=== PATIENT | female | born 1995 | race Hispanic/Latino ===

== ENCOUNTER 2018-07-09 13:37 | Inpatient (IN) | payer OTHER ==
[2018-07-09] MEDS ORDERED: METHYLERGONOVINE 0.2MG/ML AMP IM PRN ×2 (14:01→15:30)
[2018-07-09] MEDS ORDERED: CARBOPROST TROME 250 MCG/ML IM PRN ×2 (14:01→15:30)
[2018-07-09] MEDS ORDERED: PROMETHAZINE 25 MG/ML VIAL IV PRN ×2 (14:01)
[2018-07-09] MEDS ORDERED: BUTORPHANOL 1 MG/ML INJ IV PRN (14:01)
[2018-07-09] MEDS ORDERED: Ringers Lactate 1,000 ML IV PRN (14:01)
[2018-07-09 14:16] LABS: RPR Titer ND
[2018-07-09 14:20] LABS: Absolute Lymphocytes (CBC) 1.1 K/uL (0.7-4.9); Absolute Monocytes 0.5 K/uL (0.1-1.3); Absolute Neutrophil 14.3 K/uL (1.8-8.0); Basophils % 0.2 % (0-1.3); Eosinophils % 0.1 % (0-4.4); Hematocrit 46.4 % (36.0-45.0); Lymphocytes % 6.7 % (15.3-44.8); MCV 94.8 fL (80-100); Monocytes % 3.4 % (3.3-12.3)
[2018-07-09] MEDS ORDERED: LIDOCAINE 1% MPF 30 ML VIAL ONE (14:26)
[2018-07-09 14:42] LABS: Platelet Estimate ADEQ; Urine White Blood Cell Casts OK
[2018-07-09 14:43] LABS: Blood Morphology Comment NOT SEEN (NOT SEEN)
[2018-07-09] MEDS ORDERED: Ringers Lactate 1,000 ML IV SCH (15:00)
[2018-07-09] MEDS ORDERED: OXYTOCIN/LR 20 UNIT/1,000 ML BAG IV SCH ×2 (15:00→16:00)
[2018-07-09] MEDS ORDERED: METHYLERGONOVINE 0.2 MG TAB PO PRN (15:30)
[2018-07-09] MEDS ORDERED: ONDANSETRON 4 MG (ODT) TAB PO PRN (15:30)
[2018-07-09] MEDS ORDERED: Oxycodone HCl/Acetaminophen 1 TAB TAB PO PRN (15:30)
--- NOTE | 2018-07-09 15:32 | P.BOP ---
Preoperative diagnosis: 39 wk IUP, prior c-sect, desire for Postoperative diagnosis: Same, delivery viable male infant Primary procedure: SCVD Secondary procedure: R midline episiotomy with repair Estimated blood loss: Less than 300ml Anesthesia: Local Complications: None Condition: Good
[2018-07-09 16:08] VITALS: BMI 34.3
[2018-07-09] MEDS: IBUPROFEN 200 MG TAB PO PRN (21:00)
[2018-07-09 23:07] LABS: RPR (Rapid Plasma Reagin) NON-REACT (NON-REACT)
--- NOTE | 2018-07-10 07:48 | PREOPHP ---
Date of Admission: 07/09/2018 History Of Present Illness: Ms. Hdz is a 22-year-old female 4, para 2-0-1-2 a t approximately 39-6/7th weeks' gestation by her history. She has been seen through the [facility] with complications of prior section with her second delivery. She had been planning an atte mpted vaginal after section with this . She noticed rupture of membranes farhan roximately 1-2 hours before presenting to Labor and Delivery and has been antonio prior to that t lionel. She apparently had been seen through [facility] and was told that they do not do vaginal bir th after section and she would have to be transferred to [facility]. Records have been requested, but not available at time of this dictation. Past Medical History: Prior vaginal delivery, 6+ pounds infant; prior section for failure t o progress with approximately 9 pounds . No other significant hospitalizations, accidents, ill nesses, injuries. Medications: She is on no medications other than vitamins. Allergies: SHE HAS NO KNOWN ALLERGIES. Social History: Does not smoke. Family History: Noncontributory. Review of Systems: She reports no recent cough, cold, fever, or chills. No recent nausea, vomiting. She denies any emilia ast lumps. Infant has been active. She denies any significant vaginal bleeding. She denies any bow el or bladder issues. Physical Examination: Exam on admission noted to be cervix was 7 cm. She is now approximately 9 cm less than [address] Lab work is being sent including type and screen because of the prior section. We will noti fy anesthesia, records request has been sent. Impression: Term , active rapidly advancing labor, prior section, unknown closure type. Plan: The patient counseled regarding risks and benefits of versus repeat section. We will proceed with trial of labor with . EMETERIO/ANDRY Voice ID: [id number]
--- NOTE | 2018-07-10 09:02 | DN ---
Surgeon: Deshawn Morales MD Ms. Hdz is a 22-year-old female 4, para 2-0-1-2, at approximately 39+ weeks' g estation, followed through [facility] during this with complications of a prior section. No records are available at this time. She presented, noted to be approximately 7 cm on admission, had spontaneous rupture of membranes a couple hours prior to admission. She had a first stage of la bor of approximately 10 hours, second stage of labor 22 minutes. She delivered by spontaneous contro lled vaginal delivery a 0-xvawy-20-ounce male infant over a right midline episiotomy with local infil tration of anesthesia. After some short delay, cord was clamped, cut, and the placed on mothe r's upper abdomen. The placenta was spontaneously expelled and appeared to be intact. Intrauterine exam revealed no retained placental fragments. Episiotomy was repaired in the usual fashion with 3-0 Vicryl suture. Estimated total blood loss less than 300 cc. The patient received 1 mg of Stadol in trapartum for analgesia. EMETERIO/ANDRY Voice ID: [id number] Report ID: [id number]
[2018-07-10] MEDS ORDERED: Tdap (Diph,Pertuss(Acell),Tet Vac) 0.5 ML SYR IMVAC ONE (09:44)
[2018-07-10] MEDS ORDERED: INFLUENZA VACCINE (for 3y+) 0.5 ML DOSE IMVAC ONE (09:45)
[2018-07-10] MEDS: IBUPROFEN 200 MG TAB PO PRN (15:33)
[2018-07-10 15:40] VITALS: BP 97/58; TEMP 98.3
[2018-07-13 03:36] LABS: HBsAG Nonreactive (Nonreactive)
== END 2018-07-10 17:30 | disposition home or self-care (01) | DRG 807 ==
LOC: L&D 13:37 → 2ND-WC 13:46
PROVIDERS: ADMIT Specialist; ATTEND Specialist
PROC: 10E0XZZ Delivery of Products of Conception, External Approach (ICD-10-PCS; principal; 2018-07-09)
PROC: 0W8NXZZ Division of Female Perineum, External Approach (ICD-10-PCS; 2018-07-09)
DX: O34.219 Maternal care for unspecified type scar from previous cesarean delivery (principal); Z37.0 Single live birth; Z3A.39 39 weeks gestation of pregnancy
CPT/HCPCS: 36415; 85014; 85025; 86592; 86901; 87340; J0595; J2210; J2590

== ENCOUNTER 2018-09-13 17:51 | Emergency (ER) | payer OTHER ==
[2018-09-13 18:16] LABS: Absolute Lymphocytes (CBC) 3.3 K/uL (0.7-4.9); Absolute Monocytes 0.5 K/uL (0.1-1.3); Absolute Neutrophil 5.3 K/uL (1.8-8.0); Basophils % 0.6 % (0-1.3); Eosinophils % 4.1 % (0-4.4); Hematocrit 39.4 % (36.0-45.0); Lymphocytes % 34.8 % (15.3-44.8); MPV 9.6 fL (7.6-11.3); Monocytes % 4.9 % (3.3-12.3); RBC Red Blood Cell Count 4.25 M/uL (3.86-4.86)
--- OUTSIDE RECORDS SUMMARY | 2018-09-13 18:17 | XMS REPORT ---
:1995 [facility] Organization [facility] Address [address] [place] [address] Dr. Bangura [address] [place] [id number] Care Team Providers Name Role Phone Unavailable Unavailable Unavailable Problems This patient has no known problems. Allergies, Adverse Reactions, Alerts This patient has no known allergies or adverse reactions. Medications This patient has no known medications.
[2018-09-13 18:21] LABS: Protime INR 1.02
[2018-09-13 18:23] LABS: Barbiturates NEGATIVE (NEGATIVE); Benzodiazepines NEGATIVE (NEGATIVE); Cocaine NEGATIVE (NEGATIVE); METHAMPHETAM NEGATIVE (NEGATIVE); Methadone NEGATIVE (NEGATIVE); Opiates NEGATIVE (NEGATIVE); Phencyclidine NEGATIVE (NEGATIVE); THC Cannibis NEGATIVE (NEGATIVE)
[2018-09-13] MEDS ORDERED: LORazepam 2 MG/ML VIAL ONE (18:24)
[2018-09-13 18:51] LABS: ALT/SGPT 25 U/L (12-78); AST/SGOT 19 U/L (15-37); Albumin 4.1 g/dL (3.4-5.0); Alkaline Phosphatase 69 U/L (45-117); BUN Blood Urea Nitrogen 13 mg/dL (7-18); Bicarbonate 24 mmol/L (21-32); Bilirubin Direct < 0.1 mg/dL (0-0.2); Bilirubin Total 0.2 mg/dL (0.2-1.0); Glucose Level 85 mg/dL (74-106); Potassium 3.7 mmol/L (3.5-5.1); Protein, Total 7.6 g/dL (6.4-8.2); Sodium Level 140 mmol/L (136-145)
[2018-09-13] MEDS ORDERED: NA CHLORIDE 0.9% 1,000 ML ONE ×3 (18:55→21:26)
--- NOTE | 2018-09-13 18:55 | RAD REPORT ---
EXAM DESCRIPTION: CT - Head Brain Wo Cont - 09/13/2018 6:39 pm CLINICAL HISTORY: Transient alteration of awareness COMPARISON: None. TECHNIQUE: Axial 5 mm thick images of the head were obtained without IV contrast. All CT scans are performed using dose optimization technique as appropriate and may include automated exposure control or mA/KV adjustment according to patient size. FINDINGS: No intracranial hemorrhage, mass, edema or shift of mid-line structures. No acute infarcti on changes seen. No abnormal extra-axial fluid collections. Ventricles are normal. Mastoid air cells are clear. Minimal maxillary sinus mucosal thickening. No acute sinusitis findings. No acute bony findings. IMPRESSION: Negative non-contrast CT head examination for acute significant finding.
[2018-09-13 20:11] LABS: Urine Blood NEGATIVE (NEG); Urine Glucose NEGATIVE (NEG); Urine Protein NEGATIVE (NEG); Urine Specific Gravity 1.005 (1.005-1.030)
--- NOTE | 2018-09-14 01:05 | ER ---
Nurse's Notes [facility] Name: Eloise Hdz Age: 22 yrs Sex: Female : 1995 Arrival Date: 09/13/2018 Time: 17:53 Bed 3 Private MD: Diagnosis: Toxic effect of ethanol Presentation: 09/13 17:50 Presenting complaint: EMS states: Family on scene reports pt has been drinking wine hb today but was normal before she went into the gas station bathroom, 5 minutes later she was found on bathroom floor altered, hitting head on wall/floor, and spitting. Transition of care: patient was not received from another setting of care. Onset of symptoms was September 13, 2018. Risk Assessment: Do you want to hurt yourself or someone else? Unable to obtain. Initial Sepsis Screen: Does the patient meet any 2 criteria? No. Patient's initial sepsis screen is negative. Does the patient have a suspected source of infection? No. Patient's initial sepsis screen is negative. Care prior to arrival: None. 17:50 Method Of Arrival: EMS: [facility] hb 17:50 Acuity: STEVAN 2 hb Triage Assessment: 18:00 General: Appears unkempt, Behavior is agitated, combative, restless, uncooperative. aj1 Pain: Unable to use pain scale. Does not appear to understand pain scale. PREDICTIVE MAINTENANCE SPECIALIST: 09/14 01:17 LMP N/A - control method lp1 Historical: - Allergies: 09/13 18:00 No Known Allergies; aj1 - Home Meds: 18:00 Unable to obtain [Active]; aj1 - PMHx: 18:00 Unable to obtain; aj1 - PSHx: 18:00 Unable to obtain; aj1 - Immunization history:: Adult Immunizations unknown. - Social history:: Smoking status: unknown. - Family history:: not pertinent. - Ebola Screening: : Unable to complete screening because. - Hospitalizations: : No recent hospitalization is reported. Screenin:19 Abuse screen: pt is confused. Nutritional screening: unable to obtain. Tuberculosis hb screening: unable to obtain. Fall Risk Total Keene Fall Scale indicates High Risk Score (45 or more points). Fall prevention measures have been instituted. Side Rails Up X 2 Frequent Obs/Assessments Occuring As available patient and family educated on Fall Prevention Program and Strategies. Assessment: 17:45 General: Appears unkempt, Behavior is agitated, combative, restless, uncooperative. aj1 Pain: Unable to use pain scale. Does not appear to understand pain scale. Neuro: Level of Consciousness is awake, confused, Oriented to person, Moves all extremities. Full function Facial symmetry appears normal, Pupils are PERRLA, Patient is screaming, biting, flailing all limbs.. Cardiovascular: Patient's skin is warm and dry. Rhythm is junctional rhythm. Respiratory: Airway is patent Respiratory effort is even, unlabored, Respiratory pattern is regular, symmetrical, Breath sounds are clear bilaterally. GI: Abdomen is round non-distended, Abd is soft and non tender X 4 quads. : Urine is clear. EENT: No signs and/or symptoms were reported regarding the EENT system. Derm: Skin is pink, warm \T\ dry. normal. Musculoskeletal: Circulation, motion, and sensation intact. 18:15 Reassessment: Patient remains agitated, flailing, restless, screaming and spitting at [facility]. Patient will not be still enough for CT to be performed. Notified Dr. Villela. Order received to give Ativan 1 mg IV. 18:22 Reassessment: Patient remains restless and combative at this time. aj1 18:35 Reassessment: Patient appears to have calmed down at this time, patient is sleeping aj1 comfortable. Patient transported to CT via stretcher, on monitor, accompanied by myself. 18:45 Reassessment: Patient returned to room from CT via stretcher. Patient remains drowsy at aj this point, but awakens easily to verbal stimuli. 19:00 Reassessment: No changes from previously documented assessment. General: Appears in no aj1 apparent distress. Behavior is drowsy. Pain: Unable to use pain scale. Does not appear to understand pain scale. Neuro: Level of Consciousness is Patient is resting comfortably but awakens easily to verbal stimuli, patient is not flailing, screaming or spitting at staff during interactions at this time. 19:30 Reassessment: No changes from previously documented assessment. General: Appears in no aj1 apparent distress. Behavior is drowsy. Pain: Unable to use pain scale. Does not appear to understand pain scale. Neuro: Level of Consciousness is Patient is resting comfortably but opens eyes to verbal stimuli. Remains confused, oriented to person only. Patient appears calm, no longer aggressive or combative. . Facial symmetry appears normal, Pupils are PERRLA. Cardiovascular: Rhythm is sinus rhythm. Respiratory: Airway is patent Respiratory effort is even, unlabored, Respiratory pattern is regular, symmetrical. Derm: Skin is pink, warm \T\ dry. normal. 19:40 Reassessment: Notified Dr. Ng of patient vital signs. Order received to hang a 2nd aj1 liter of NS. 19:51 Reassessment: Improved noted to patient vital sings at this time. aj1 20:00 Reassessment: No changes from previously documented assessment. General: Appears aj1 unkempt, Behavior is drowsy. Pain: Unable to use pain scale. Neuro: Level of Consciousness is Patient is resting comfortably, but opens eyes to verbal stimuli.. Oriented to person, Facial symmetry appears normal. Cardiovascular: Patient's skin is warm and dry. Rhythm is sinus rhythm. Respiratory: Airway is patent Respiratory effort is even, unlabored, Respiratory pattern is regular, symmetrical. Derm: Skin is pink, warm \T\ dry. normal. 20:48 Reassessment: Patient has begun to get restless again, remains confused, oriented to aj1 person only. Patient will answer yes and no questions, but does not appear to be aware of her surroundings at this time. Patient moved to bed 3 to allow better visualization from nurses station. 21:15 Reassessment: No changes from previously documented assessment. General: Appears in no aj1 apparent distress. Behavior is drowsy. Neuro: Level of Consciousness is Patient is resting comfortably, awakens easily to verbal stimuli. Patient will answer yes/no questions, but still seems unaware of her surroundings at this time. Cardiovascular: Patient's skin is warm and dry. Rhythm is sinus rhythm. Respiratory: Airway is patent Respiratory effort is even, unlabored, Respiratory pattern is regular, symmetrical. 21:45 Reassessment: Notified Dr. Ng of patient vital signs order received to hang an aj1 additional liter of NS. 21:45 Reassessment: Patient appears in no apparent distress at this time. No changes from aj1 previously documented assessment. General: Behavior is drowsy. Cardiovascular: Rhythm is sinus rhythm. Respiratory: Airway is patent Respiratory effort is even, unlabored, Respiratory pattern is regular, symmetrical. Derm: Skin is pink, warm \T\ dry. normal. 22:20 Reassessment: No changes from previously documented assessment. General: Appears in no aj1 apparent distress. Behavior is drowsy. Pain: Unable to use pain scale. Does not appear to understand pain scale. Neuro: Level of Consciousness is Patient is resting comfortably, opens eyes to verbal stimuli. Patient is oriented to person only at this time. . Facial symmetry appears normal, Pupils are PERRLA. Cardiovascular: Patient's skin is warm and dry. Rhythm is sinus rhythm. Respiratory: Airway is patent Respiratory effort is even, unlabored, Respiratory pattern is regular, symmetrical. Derm: Skin is pink, warm \T\ dry. normal. 23:24 General: Appears in no apparent distress. Behavior is drowsy, Responsive to verbal ed1 stimuli. Pain: Unable to use pain scale. Does not appear to understand pain scale. 09/14 00:45 Reassessment: Patient awake at this time; Cannot recall how she arrived to ER; Patient lp1 oriented to time and place, assisted to bathroom at this time; Requesting Alex to be contacted. 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 01:36 Reassessment: Patient ambulated to bathroom independently to change clothes. Neuro: lp1 Level of Consciousness is awake, alert, obeys commands, Oriented to person, place, situation, Gait is steady, Pupils are PERRLA. Vital Signs: 09/13 18:19 BP 101 / 64; Pulse 89; Resp 16; Temp 97.9; Pulse Ox 100% on R/A; hb 18:30 BP 100 / 68; Pulse 70; Resp 18; Pulse Ox 99% on R/A; aj1 19:00 BP 92 / 54; Pulse 67; Resp 18; Pulse Ox 99% ; aj1 19:40 BP 80 / 61; Pulse 60; Resp 24; Pulse Ox 100% ; aj1 19:51 BP 100 / 62; Pulse 79; Resp 20; Pulse Ox 100% on R/A; aj1 20:15 BP 102 / 65; Pulse 68; Resp 18; Pulse Ox 97% ; aj1 20:45 BP 98 / 59; Pulse 67; Resp 19; Pulse Ox 99% on R/A; aj1 21:00 BP 93 / 65; Pulse 66; Resp 18; Pulse Ox 98% on R/A; aj1 21:30 BP 87 / 51; Pulse 87; Resp 18; Pulse Ox 99% on R/A; aj1 22:00 BP 99 / 56; Pulse 65; Resp 18; Pulse Ox 100% on R/A; aj1 22:28 BP 102 / 73; Pulse 80; Resp 19; Pulse Ox 100% on R/A; aj1 23:24 BP 90 / 53; Pulse 59; Resp 16; Pulse Ox 98% on R/A; ed1 09/14 00:34 BP 90 / 56; Pulse 64; Resp 14; Pulse Ox 98% on R/A; Pain 0/10; aa1 01:00 BP 109 / 83; Pulse 93; Resp 20; Pulse Ox 100% on R/A; lp1 01:15 BP 103 / 72; Pulse 82; Resp 17; Pulse Ox 100% on R/A; lp1 09/13 23:24 Dr. Ng notified ed1 [place] Coma Score: 09/14 01:07 Eye Response: spontaneous(4). Verbal Response: oriented(5). Motor Response: obeys gs commands(6). Total: 15. ED Course: 09/13 17:45 tea bag machine tender on. Pulse ox on. NIBP on. aj1 17:45 No provider procedures requiring assistance completed. aj1 17:53 Patient arrived in ED. rn 17:53 Gary Villela MD is Attending Physician. rn 18:00 Patient has correct armband on for positive identification. Bed in low position. Call hb light in reach. Side rails up X2. 18:00 Arm band placed on. aj1 18:00 Inserted saline lock: 20 gauge in right antecubital area, using aseptic technique. hb Blood collected. 18:12 Leni Joseph RN is Primary Nurse. aj1 18:19 Triage completed. hb 18:39 CT Head Brain wo Cont In Process Unspecified. EDMS 18:42 CT completed. bq 19:01 Attending Physician role handed off by Gary Villela MD gs 19:01 Mo Ng MD is Attending Physician. gs 22:35 Report given to GASPER Alvarez. aj1 09/14 01:36 IV discontinued, No redness/swelling at site. Pressure dressing applied. lp1 Administered Medications: 09/13 18:16 Drug: Ativan 1 mg Route: IVP; Site: right antecubital; hb 19:15 Follow up: Response: No adverse reaction aj1 19:03 Drug: NS 0.9% 1000 ml Route: IV; Rate: 1000 ml; Site: right antecubital; aj1 19:40 Drug: NS 0.9% 1000 ml Route: IV; Rate: 1 bolus; Site: right antecubital; aj1 20:45 Follow up: IV Status: Completed infusion; IV Intake: 1000ml aj1 21:45 Drug: NS 0.9% 1000 ml Route: IV; Rate: 1 bolus; Site: right antecubital; aj1 22:41 Follow up: IV Status: Completed infusion; IV Intake: 1000ml aj1 Intake: 20:45 IV: 1000ml; Total: 1000ml. aj1 22:41 IV: 1000ml; Total: 2000ml. aj1 Outcome: 09/14 01:04 Discharge ordered by . 01:36 Discharged to home ambulatory, with family. lp1 01:36 Condition: good 01:36 Discharge instructions given to patient, Instructed on discharge instructions, follow up and referral plans. 01:37 Patient left the ED. lp1 Signatures: Dispatcher [employer] EDMS Leni Joseph RN RN aj1 Michelle Sparks RN RN Rachelle Yanes Roman, MD MD rn Riggs, Erika, RN RN ed1 Kim Saenz RN RN lp1 Barbie Salmeron RN RN hb Starr, Gregory, MD MD gs Corrections: (The following items were deleted from the chart) 09/13 20:52 18:15 Reassessment: Patient remains agitated, flailing, restless. Patient will not be aj1 still enough for CT to be performed. Notified Dr. Villela. Order received to give Ativan 1 mg IV aj1 : 23:24 General: Appears in no apparent distress. Behavior is drowsy, ed1 ed1
--- NOTE | 2018-09-14 01:05 | EDPHYS ---
Physician Documentation [facility] Name: Eloise Hdz Age: 22 yrs Sex: Female : 1995 Arrival Date: 09/13/2018 Time: 17:53 Bed 3 Private MD: ED Physician Mo Ng HPI: 09/13 17:58 This 22 yrs old Female presents to ER via Unassigned with complaints of rn confusion, AMS. 17:58 The patient presents with confusion, decreased responsiveness, disorientation. Onset: rn The symptoms/episode began/occurred just prior to arrival. Possible causes: unknown. Current symptoms: In the emergency department the patient's symptoms are unchanged from the initial presentation. It is unknown whether or not the patient has had similar symptoms in the past. Bystanders report was normal, went into bathroom, then came out acting strange, not making sense, some say she hit her head on concrete, other said she didn't, patient not making sense for EMS, not cooperating, altered. No drugs or pills found.. [employer]: 09/14 01:17 LMP N/A - control method lp1 Historical: - Allergies: 09/13 18:00 No Known Allergies; aj1 - Home Meds: 18:00 Unable to obtain [Active]; aj1 - PMHx: 18:00 Unable to obtain; aj1 - PSHx: 18:00 Unable to obtain; aj1 - Immunization history:: Adult Immunizations unknown. - Social history:: Smoking status: unknown. - Family history:: not pertinent. - Ebola Screening: : Unable to complete screening because. - Hospitalizations: : No recent hospitalization is reported. ROS: 17:58 Unable to obtain ROS due to altered mental status. rn Exam: 17:58 Constitutional: Overweight female, altered, uncooperative, spitting and biting rn Head/Face: Normocephalic, atraumatic. Eyes: Pupils 4mm, reactive, no nystagmus ENT: dry MM Cardiovascular: Regular rate and rhythm, No pulse deficits. Respiratory: Lungs have equal breath sounds bilaterally, clear to auscultation Abdomen/GI: soft, non-tender Skin: Warm, dry with normal turgor. Normal color with no rashes, no lesions, and no evidence of cellulitis. MS/ Extremity: Pulses equal, no cyanosis. Neurovascular intact. Full, normal range of motion. Equal circumference. + right upper bicep with fresh needle frannie. Neuro: Awake, confused, unccoperative, moves all 4 extremities spont 09/14 01:06 Constitutional: The patient appears lethargic. gs ENT: Mouth: is normal. Chest/axilla: Exam negative for acute changes. Cardiovascular: Exam negative for acute changes. Respiratory: Exam negative for acute changes, Breath sounds: are clear throughout. Abdomen/GI: Exam negative for acute changes, Palpation: abdomen is soft and non-tender. Back: Exam negative for acute changes, decreased ROM, deformity. Musculoskeletal/extremity: Exam is negative for acute changes, abrasion, deformity. Skin: Exam negative for abrasion, acute changes. Neuro: Orientation: to person, place, time, Cranial nerves: CN II- XII are normal as tested, Motor: moves all fours, Sensation: is normal, no obvious gross deficits. Vital Signs: 09/13 18:19 BP 101 / 64; Pulse 89; Resp 16; Temp 97.9; Pulse Ox 100% on R/A; hb 18:30 BP 100 / 68; Pulse 70; Resp 18; Pulse Ox 99% on R/A; aj1 19:00 BP 92 / 54; Pulse 67; Resp 18; Pulse Ox 99% ; aj1 19:40 BP 80 / 61; Pulse 60; Resp 24; Pulse Ox 100% ; aj1 19:51 BP 100 / 62; Pulse 79; Resp 20; Pulse Ox 100% on R/A; aj1 20:15 BP 102 / 65; Pulse 68; Resp 18; Pulse Ox 97% ; aj1 20:45 BP 98 / 59; Pulse 67; Resp 19; Pulse Ox 99% on R/A; aj1 21:00 BP 93 / 65; Pulse 66; Resp 18; Pulse Ox 98% on R/A; aj1 21:30 BP 87 / 51; Pulse 87; Resp 18; Pulse Ox 99% on R/A; aj1 22:00 BP 99 / 56; Pulse 65; Resp 18; Pulse Ox 100% on R/A; aj1 22:28 BP 102 / 73; Pulse 80; Resp 19; Pulse Ox 100% on R/A; aj1 23:24 BP 90 / 53; Pulse 59; Resp 16; Pulse Ox 98% on R/A; ed1 09/14 00:34 BP 90 / 56; Pulse 64; Resp 14; Pulse Ox 98% on R/A; Pain 0/10; aa1 01:00 BP 109 / 83; Pulse 93; Resp 20; Pulse Ox 100% on R/A; lp1 01:15 BP 103 / 72; Pulse 82; Resp 17; Pulse Ox 100% on R/A; lp1 09/13 23:24 Dr. Ng notified ed1 [place] Coma Score: 09/14 01:07 Eye Response: spontaneous(4). Verbal Response: oriented(5). Motor Response: obeys gs commands(6). Total: 15. MDM: 09/13 17:53 Patient medically screened. rn 19:03 Transition of care: After a detail discussion of the patient's case, care is rn transferred to Mo Ng MD. 09/14 01:03 Differential Diagnosis: electrolyte abnormality, alcohol intoxication, intracranial gs bleed, overdose. Data reviewed: vital signs, nurses notes. Counseling: I had a detailed discussion with the patient and/or guardian regarding: the historical points, exam findings, and any diagnostic results supporting the discharge/admit diagnosis, lab results, the need for further work-up and treatment in the hospital. Response to treatment: the patient's symptoms have markedly improved after treatment, the patient's symptoms have resolved after treatment, the patient's condition has returned to base line. 09/13 17:56 Order name: Acetaminophen rn 09/13 17:56 Order name: Basic Metabolic Panel 09/13 17:56 Order name: CBC with Diff rn 09/13 17:56 Order name: ETOH Level rn 09/13 17:56 Order name: Hepatic Function; Complete Time: 18:58 09/13 17:56 Order name: PT-INR; Complete Time: 18:58 09/13 17:56 Order name: Ptt, Activated; Complete Time: 18:58 09/13 17:56 Order name: Salicylate; Complete Time: 00:20 rn 09/13 17:56 Order name: Urine Drug Screen; Complete Time: 18:58 rn 09/13 17:56 Order name: Acetaminophen Level; Complete Time: 18:58 EDMS 09/13 17:56 Order name: Basic Metabolic Panel; Complete Time: 18:58 EDMS 09/13 17:56 Order name: CBC with Automated Diff; Complete Time: 18:58 EDMS 09/13 17:56 Order name: Alcohol Serum/Plasma; Complete Time: 18:58 [facility] 09/13 18:13 Order name: Urine Dipstick--Ancillary (enter results); Complete Time: 00:20 eb 09/13 17:56 Order name: Urine Test (obtain specimen); Complete Time: 19:10 rn 09/13 17:56 Order name: EKG; Complete Time: 17:57 rn 09/13 17:56 Order name: EKG - Nurse/Tech; Complete Time: 19:23 rn 09/13 17:56 Order name: IV Saline Lock; Complete Time: 18:15 rn 09/13 17:56 Order name: Labs collected and sent; Complete Time: 18:15 rn 09/13 17:56 Order name: Urine Dipstick-Ancillary (obtain specimen); Complete Time: 18:15 rn 09/13 17:56 Order name: CT Head Brain wo Cont; Complete Time: 18:58 rn Administered Medications: 09/13 18:16 Drug: Ativan 1 mg Route: IVP; Site: right antecubital; 19:15 Follow up: Response: No adverse reaction aj1 19:03 Drug: NS 0.9% 1000 ml Route: IV; Rate: 1000 ml; Site: right antecubital; aj1 19:40 Drug: NS 0.9% 1000 ml Route: IV; Rate: 1 bolus; Site: right antecubital; aj1 20:45 Follow up: IV Status: Completed infusion; IV Intake: 1000ml aj1 21:45 Drug: NS 0.9% 1000 ml Route: IV; Rate: 1 bolus; Site: right antecubital; aj1 22:41 Follow up: IV Status: Completed infusion; IV Intake: 1000ml aj Disposition: 09/14/18 01:04 Discharged to Home. Impression: Toxic effect of ethanol. - Condition is Stable. - Discharge Instructions: Alcohol Intoxication. - Medication Reconciliation Form, Thank You Letter, Antibiotic Education, Prescription Opioid Use form. - Follow up: Private Physician; When: 2 - 3 days; Reason: Re-evaluation by your physician. Signatures: Dispatcher [facility] Lein Joseph RN RN aj1 Gary Villela MD MD rn Pena, Laura, RN RN lp1 Barbie Salmeron RN RN Mo Ng MD MD gs Corrections: (The following items were deleted from the chart) 18:05 17:58 Constitutional: Overweight female, altered, uncooperative, spitting and biting rn Head/Face: Normocephalic, atraumatic. Eyes: Pupils 4mm, reactive, no nystagmus ENT: dry MM Cardiovascular: Regular rate and rhythm, No pulse deficits. Respiratory: Lungs have equal breath sounds bilaterally, clear to auscultation Abdomen/GI: soft, non-tender Skin: Warm, dry with normal turgor. Normal color with no rashes, no lesions, and no evidence of cellulitis. MS/ Extremity: Pulses equal, no cyanosis. Neurovascular intact. Full, normal range of motion. Equal circumference. Neuro: Awake, confused, unccoperative, moves all 4 extremities spont rn 09/14 01:37 01:04 09/14/2018 01:04 Discharged to Home. Impression: Toxic effect of ethanol. lp1 Condition is Stable. Forms are Medication Reconciliation Form, Thank You Letter, Antibiotic Education, Prescription Opioid Use. Follow up: Private Physician; When: 2 - 3 days; Reason: Re-evaluation by your physician. gs
[2018-09-14 02:27] VITALS: TEMP 97.9
[2018-09-14 02:44] VITALS: O2SAT 100
[2018-09-14 02:45] VITALS: BP 103/72
--- NOTE | 2018-09-14 07:05 | EKG ---
Test Date: 2018-09-13 Test Time: 19:17:11 Catcher Helper: ERICKA MEASUREMENT RESULTS: Intervals: Rate: 66 IA: 184 QRSD: 72 QT: 414 QTc: 434 [place]: P: 62 IA: 184 QRS: 71 T: 45 INTERPRETIVE STATEMENTS: Normal sinus rhythm Normal ECG No previous ECG available for comparison Electronically Signed On 09-14-18 07:04:35 [employer] CHECK[employer] by Ruben Atkinson
== END 2018-09-14 01:37 | disposition home or self-care (01) ==
LOC: ER 17:51
DX: F10.929 Alcohol use, unspecified with intoxication, unspecified (principal)
CPT/HCPCS: 36415; 70450; 80048; 80076; 80307; 80320; 80329; 81003; 85025; 85610; 85730; 93005; 96361; 96374; 99285; J7030